=== PATIENT | female | born 1970 | race Caucasian/White ===

== ENCOUNTER 2024-01-28 09:32 | Day surgery (SDC) | payer MEDICARE, MEDICAID ==
[~2024-01-28 09:32] MED LIST: Sodium Chloride 0.9% 10 ML Syringe FLUSH PRN; Sodium Chloride 0.9% 2.5 ML Syringe FLUSH PRN; Sodium Chloride 0.9% 20 ML SDV IV PRN
[2024-01-28] MEDS: Lactated Ringers 1,000 ML IV SCH (10:21)
[2024-01-28] MEDS ORDERED: Propofol 200 MG/20 ML SDV ONE (10:52)
[2024-01-28] MEDS ORDERED: Lidocaine 2% 5 ML SDV ONE (10:53)
== END 2024-01-28 11:57 | disposition home or self-care (01) ==
LOC: MW.SDS 09:32
PROVIDERS: ATTEND Surgery
DX: K29.50 Unspecified chronic gastritis without bleeding (principal); K21.00 Gastro-esophageal reflux disease with esophagitis, without bleeding; R68.81 Early satiety; J45.909 Unspecified asthma, uncomplicated; F17.210 Nicotine dependence, cigarettes, uncomplicated; Z88.8 Allergy status to other drugs, medicaments and biological substances; Z91.041 Radiographic dye allergy status; Z79.899 Other long term (current) drug therapy
CPT/HCPCS: 43239; J2704; J7120; 88305; J3490